=== PATIENT | female | born 1945 | race Caucasian/White ===

== ENCOUNTER 2020-12-01 11:50 | Emergency (ER) | payer MEDICARE, OTHER, SELFPAY ==
[2020-12-01 11:56] VITALS: BP 156/84; PULSE 58; RESP 16; TEMP 36.5; O2SAT 97; BMI 27.4
[2020-12-01 12:16] LABS: Basophils % 0.7 %; Eosinophils # 0.1 10^3/uL (0.0-0.8); Eosinophils % 2.3 %; Hematocrit 39.3 % (37.0-47.0); Hemoglobin 13.1 g/dL (11.5-15.3); Lymphocytes # 2.4 10^3/uL (0.8-4.8); Lymphocytes % 39.4 %; Mean Corpuscular HGB Conc 33.3 g/dL (30.0-36.0); Mean Corpuscular Hemoglobin 29.4 pg (28.0-34.0); Mean Corpuscular Volume 88.1 fL (81-99); Mean Platelet Volume 11.1 fL (7.4-10.4); Monocytes # 0.4 10^3/uL (0.2-0.9); Monocytes % 6.5 %; Neutrophils # 3.12 10^3/uL (1.8-7.7); Neutrophils % 50.9 %; Nucleated Red Blood Cells % 0 %; Platelet Count 149 10^3/cmm (130-400); Red Blood Count 4.46 10^6/uL (4.1-5.3); Red Cell Distribution Width 13.2 % (12.1-15.1); White Blood Count 6.1 10^3/uL (4.0-10.0)
[2020-12-01 12:21] VITALS: BP 123/93; PULSE 69; RESP 17; O2SAT 97
--- NOTE | 2020-12-01 12:29 | USR_ITS ---
PROCEDURE INFORMATION: Exam: US Abdomen, Limited; Right Upper Quadrant Exam date and time: 12/01/2020 12:29 PM Age: 75 years old Clinical indication: Abdominal pain; Epigastric; Additional info: Abd pain TECHNIQUE: Imaging protocol: US abdomen. Real time ultrasound with image documentation. Limited exam focused on the right upper quadrant. COMPARISON: No relevant prior studies available. FINDINGS: Liver: Normal. No masses. Gallbladder: There is a positive sonographic Cisneros's sign. Gallbladder wall is somewhat ill-defined in regions. Blower Installer measures gallbladder wall thickness as 1.5 mm. I obtain measurements of 3 mm in regions which is mildly thickened. The gallbladder is distended. Common bile duct: Common bile duct measures 2 mm. Pancreas: Pancreas is not well seen secondary to overlying bowel gas. Right kidney: There is right renal cortical thinning. US/US gall bladder [id number] IMPRESSION: Gallbladder is distended and the gallbladder is somewhat ill-defined with possible mild thickening in regions. In combination with a positive sonographic Cisneros sign, findings raise concern for acute cholecystitis.
--- NOTE | 2020-12-01 12:29 | CTR_ITS ---
PROCEDURE INFORMATION: Exam: CT Abdomen And Pelvis With Contrast Exam date and time: 12/01/2020 12:29 PM Age: 75 years old Clinical indication: Abdominal pain; Localized; Upper; Prior surgery; Surgery type: Hysto; Additional info: Abd pain TECHNIQUE: Imaging protocol: Computed tomography of the abdomen and pelvis with contrast. Radiation optimization: All CT scans at this facility use at least one of these dose optimization techniques: automated exposure control; mA and/or kV adjustment per patient size (includes targeted exams where dose is matched to clinical indication); or iterative reconstruction. Contrast material: OMNI 300; Contrast volume: 95 ml; Contrast route: INTRAVENOUS (IV); COMPARISON: US gall bladder [id number] 12/01/2020 12:53 PM RADIATION DOSE METRICS: Total DLP (mGy-cm): 1236.88 FINDINGS: Liver: Normal. No mass. Gallbladder and bile ducts: The gallbladder is distended. Gallbladder wall is somewhat ill-defined and thickened in regions measuring 3.2 mm. There are several small stones in the gallbladder. Pancreas: Normal. No ductal dilation. Spleen: Normal. No splenomegaly. Adrenal glands: Normal. No mass. Kidneys and ureters: Normal. No hydronephrosis. Stomach and bowel: Unremarkable. No obstruction. No mucosal thickening. Appendix: No evidence of appendicitis. Intraperitoneal space: Unremarkable. No free air. No significant fluid collection. Vasculature: Calcified plaque is present within multiple vascular structures. Lymph nodes: Unremarkable. No enlarged lymph nodes. Urinary bladder: Unremarkable as visualized. Reproductive: Unremarkable as visualized. Bones/joints: Unremarkable. No acute fracture. Soft tissues: Tiny fat containing umbilical hernia. CT/CT abdomen pelvis w con* [id number] IMPRESSION: Gallbladder is distended and contains stones. Gallbladder wall is somewhat ill-defined and mildly thickened in regions raising concern for acute cholecystitis. Radiation Dose CTDIVOL = (mGy): DLP = 1236.88 (mGy-cm)
--- NOTE | 2020-12-01 12:31 | ED_ITS ---
HPI - Abdominal Pain General: Chief Complaint: Abdominal Pain Stated Complaint: ABD PAIN Time Seen by Provider: 12/01/20 11:53 History of Present Illness: HPI narrative: 75-year-old female presents emergency room with complaint of epigastric right upper quadrant chest pain. It began at about 1030 this morning she had eaten biscuits and gravy and guajardo this morning she has not had any vomiting or diarrhea. She has had similar episodes in the past although not as intense. A year ago that recommended she get an ultrasound of her gallbladder but it was put off due to Covid and she never followed through with getting it again. Denies any hematuria denies any hematochezia melena hematemesis coffee-ground emesis MD elicited complaint: abdominal pain Onset (ago): hour(s) Pain Consistency: constant Location: Epigastric and RUQ Severity: moderate Quality: cramping Radiation: none Migration to: RUQ Exacerbating factors: eating Relieving factors: nothing Associated Symptoms: Reports anorexia, bloating, GI cramping, nausea and poor appetite; Denies belching, change in bowel habits, change in stool character, chills, coffee ground emesis, constipation, diarrhea, dyspepsia, dysuria, excessive flatus, fever(s), heartburn, hematochezia, hematuria, hematemesis, fecal incontinence, loose stools, melena, syncope and vomiting Review of Systems Const: Denies: fever(s) or chills ENMT: Denies: throat pain, ear or mastoid pain, nasal discharge or nasal congestion Card: Denies: syncope Resp: Denies: dyspnea, productive cough or non-productive cough GI: Reports: nausea, bloating and GI cramping; Denies: vomiting, hematemesis, coffee ground emesis, heartburn, diarrhea, constipation, belching, excessive flatus, fecal incontinence, change in bowel habits, change in stool character, hematochezia or melena : Denies: dysuria or hematuria Skin/Breast: Denies: rash or pruritus PFS ED PFSH: Medical History (Updated 12/14/20 @ 16:13 by Earl Marrero MD) Hypothyroidism Surgical History (Updated 12/14/20 @ 10:59 by Earl Marrero MD) History of colonoscopy History of hysterectomy Family History (Updated 12/14/20 @ 10:31 by Eugenia Madera RN) Denies family history of Anesthesia complication Bleeding disorder Social History Smoking and tobacco status: never smoked Physical Exam Const: COMMON NORMALS: no acute distress GENERAL APPEARANCE: cooperative and comfortable ORIENTATION/CONSCIOUSNESS: Yes awake, Yes oriented to person, Yes oriented to place and Yes oriented to time HENMT: COMMON NORMALS: normocephalic, atraumatic, hearing grossly normal bilaterally and external ears normal HEAD & SCALP: normocephalic and atraumatic EXTERNAL EAR: Yes external ears normal Neck/C-Spine: COMMON NORMALS: no JVD Resp: COMMON NORMALS: normal respiratory effort, No retractions, No use of accessory muscles and clear to auscultation bilaterally AUSCULTATION: clear to auscultation bilaterally Cardio: COMMON NORMALS: no JVD, regular rate, regular rhythm and No murmurs present (Cardio) RATE: regular rate RHYTHM: regular rhythm GI: COMMON NORMALS: Soft to palpation and No hepatosplenomegaly present AUSCULTATION: Yes normoactive bowel sounds PALPATION: Yes Soft to palpation, No Tenderness to palpation present (GI), No Guarding due to palpation present (GI) and Yes No hepatosplenomegaly present Extremity: COMMON NORMALS: normal to inspection, capillary refill normal, no clubbing, cyanosis or edema, no calf tenderness and no pedal edema Neuro: SENSORIUM/ORIENTATION: Yes oriented to person, Yes oriented to place and Yes oriented to time Skin: COMMON NORMALS: no rashes or lesions noted GENERAL SKIN EXAM: no rashes or lesions noted Course Vital Signs: Vital signs: Vital Signs Temperature 97.7 F 12/01/20 11:56 Pulse Rate 73 12/01/20 15:55 Respiratory Rate 15 12/01/20 15:55 Blood Pressure 128/66 12/01/20 15:55 Pulse Oximetry 97 12/01/20 15:55 MDM - Abdominal Pain MDM Narrative: Medical decision making narrative: Patient is feeling better we will discharge her home and set her up to see surgery next week for further evaluation of gallbladder discussed bland diet pain medications and antiemetics return if worsens Lab Data: Labs: Lab Results 12/01/20 12/01/20 12/01/20 Range/Units 11:34 11:34 13:16 WBC 6.1 (4.0-10.0) 10^3/ uL RBC 4.46 (4.1-5.3) 10^6/u L Hgb 13.1 (11.5-15.3) g/dL Hct 39.3 (37.0-47.0) % MCV 88.1 (81-99) fL MCH 29.4 (28.0-34.0) pg MCHC 33.3 (30.0-36.0) g/dL RDW 13.2 (12.1-15.1) % Plt Count 149 (130-400) 10^3/c mm MPV 11.1 H (7.4-10.4) fL Neut % (Auto) 50.9 % Lymph % (Auto) 39.4 % [place] % (Auto) 6.5 % Eos % (Auto) 2.3 % Baso % (Auto) 0.7 % Neut # (Auto) 3.12 (1.8-7.7) 10^3/u L Lymph # (Auto) 2.4 (0.8-4.8) 10^3/u L [place] # (Auto) 0.4 (0.2-0.9) 10^3/u L Eos # (Auto) 0.1 (0.0-0.8) 10^3/u L Baso # (Auto) 0.0 (0.0-0.1) 10^3/u L Nucleated RBC % (a uto) 0 % Nucleated RBCs # 0.0 /100WBC Sodium 142 (136-145) mmol/L Potassium 3.9 (3.5-5.1) mmol/L Chloride 104 (98-107) mmol/L Carbon Dioxide 26 (22-29) mmol/L Anion Gap 15.9 (5-19) BUN 21 (8-23) mg/dL Creatinine 0.8 (0.5-0.9) mg/dL GFR Calculation Not Reportable Glucose 146 H (65-115) mg/dL Calculated Osmolal ity 300 H (285-295) mOsm/k g Calcium 9.2 (8.5-10.5) mg/dL Total Bilirubin 0.8 (0.15-1.2) mg/dL AST 26 (0-32) U/L ALT 20 (0-33) U/L Alkaline Phosphata se 96 (35-105) IU/L Total Protein 6.5 L (6.6-8.7) g/dL Albumin 3.9 (3.5-5.2) g/dL Globulin 2.6 (1.3-4.6) g/dL Urine Color Straw (Yellow) Urine Appearance Hazy A (CLEAR) Urine pH 7 (5-7) Ur Specific Gravit y 1.010 (1.005-1.030) Urine Protein Neg (Negative) Urine Glucose (UA) Norm (Normal) Urine Ketones Negative (Negative) Urine Blood Neg (Negative) Urine Nitrate Negative (Negative) Urine Bilirubin Neg (Negative) Urine Urobilinogen Norm (Negative) mg/dL Ur Leukocyte Clari ase Negative (Negative) Urine RBC None (0-2) /hpf Urine WBC Rare (0-5) /hpf Ur Squamous Epith Cells None (0-5) /hpf Amorphous Sediment 2+ /hpf Urine Bacteria Trace (NONE) /hpf Discharge Plan Discharge Patient Disposition: Home Clinical Impression: Cholelithiases Condition: Stable Prescriptions: New hydrocodone-acetaminophen 5-325 mg tablet 1 tab PO Q6H PRN (Reason: pain) Qty: 20 RF: 0 Zofran 4 mg tablet 4 mg PO Q6H PRN (Reason: nausea and vomiting) Qty: 15 RF: 0 No Action levothyroxine 50 mcg capsule 50 mcg PO DAILY RF: 0 Discharge Orders: Discharge ED (Routine); Ordered 12/01/20 Ordered By: Elliot Huerta Referrals: Jhoan Soriano DO [Primary Care Provider] - Discharge Diet: Clear Liquid Discharge Activity: Limit activity as instructed Patient Instructions: Opioid Safety Activity Restrictions/Additional Instructions: Case management will call to arrange for an appointment with a surgeon for you to have a cholecystectomy Coding Level of Care Code ED Floor Manager for Chg Fwd Exam Comprehensive
[2020-12-01 12:38] LABS: Alanine Aminotransferase 20 U/L (0-33); Albumin Level 3.9 g/dL (3.5-5.2); Alkaline Phosphatase 96 IU/L (35-105); Anion Gap 15.9 (5-19); Aspartate Amino Transferase 26 U/L (0-32); Blood Urea Nitrogen 21 mg/dL (8-23); Calcium 9.2 mg/dL (8.5-10.5); Carbon Dioxide 26 mmol/L (22-29); Chloride 104 mmol/L (98-107); Globulin 2.6 g/dL (1.3-4.6); Glucose 146 mg/dL (65-115); Osmolality Calculated 300 mOsm/kg (285-295); Potassium 3.9 mmol/L (3.5-5.1); Sodium 142 mmol/L (136-145); Total Bilirubin 0.8 mg/dL (0.15-1.2); Total Protein 6.5 g/dL (6.6-8.7)
[2020-12-01] MEDS: iohexol 300 mg/mL 100 mL Btl IV (13:44)
[2020-12-01 13:49] LABS: Add Urine Microscopic? YES; Bilirubin Urine Neg (Negative); Blood Urine Neg (Negative); Glucose Urine UA Norm (Normal); Ketones Urine Negative (Negative); Leukocyte Esterase Urine Negative (Negative); Nitrate Urine Negative (Negative); Protein Urine Neg (Negative); Urine Appearance Hazy (CLEAR); Urine Color Straw (Yellow); Urobilinogen Urine Norm (Negative); pH Urine 7 (5-7)
[2020-12-01 13:50] LABS: Bacteria Urine TRACE /hpf; WBC Urine RARE /hpf (0-5)
[2020-12-01 13:51] LABS: Add Urine Culture? No; Amorphous Sediment Urine 2+ /hpf
[2020-12-01 14:00] VITALS: BP 128/66; PULSE 73; RESP 15; O2SAT 97
[2020-12-01] MEDS: morphine 4 mg/mL SDV 1 mL IVP (14:44)
[2020-12-01] MEDS: sodium chloride 0.9% 1,000 ML 999 ML IV (14:44)
[2020-12-01] MEDS: ondansetron 2 mg/ML SDV 2 mL 4 MG IVP (14:44)
[2020-12-01 15:55] VITALS: BP 128/66; PULSE 73; RESP 15; O2SAT 97
--- NOTE | 2020-12-03 09:29 | PC.SOCIAL ---
Sent Email to [facility] regarding the referral by Dr Huerta for consult for Cholithiasis. They will call patient with appointment.
--- NOTE | 2020-12-14 15:10 | DCPLANNER ---
Patient had a follow up appointment scheduled for 12.14.[address] Marrero at [facility] - patient did attend appointment.
== END 2020-12-01 15:55 | disposition home or self-care (01) ==
PROVIDERS: Emergency Provider Family Medicine; PCP Family Medicine
DX: K80.20 Calculus of gallbladder without cholecystitis without obstruction (principal)
CPT/HCPCS: 74177; 76705; 80053; 81001; 85025; 96361; 96374; 96375; 99284; J2270; J2405; J7030; Q9967

== ENCOUNTER → 2020-12-14 11:08 | Outpatient (BNVA) | payer MEDICARE, OTHER, SELFPAY | PROVIDERS: PCP Family Medicine; Visit Provider Surgery | DX: Z11.52 Encounter for screening for COVID-19 (principal); K80.20 Calculus of gallbladder without cholecystitis without obstruction | CPT/HCPCS: 87635 ==

== ENCOUNTER 2020-12-20 06:01 | Day surgery (SDC) | payer MEDICARE, OTHER, SELFPAY ==
[2020-12-19 08:23] VITALS: BMI 27.4
[2020-12-20] VITALS (8 sets, daily range): BP systolic 130–147; BP diastolic 68–73; PULSE 55–68; RESP 15–20; TEMP 36.1–36.5; O2SAT 95–100
[2020-12-20] MEDS: sodium chloride 0.9% 1,000 ML 30 ML IV (06:34)
--- NOTE | 2020-12-20 06:51 | W.PM.OPSUD ---
Surgery/Procedure H&P Update DATE OF PROCEDURE: December 20, 2020 DATE H&P PERFORMED: 12/14/20 H&P UPDATE INFORMATION: I have reviewed H&P completed within last 30 days, I have examined patient prior to procedure and No changes to prior documentation PREOP DIAGNOSIS: Cholelithiasis PLANNED PROCEDURE: Operation Date: 12/20/20 07:00 Proposed Procedures p Laparoscopic Possible Cholecystectomy 81768 K80.20(Not Applicable) - Earl Marrero MD
--- NOTE | 2020-12-20 07:02 | ANES.PREANE2 ---
Pre-Anesthetic Assessment Pre-Anesthetic Assessment: Height/Weight: Height 1.63 m Weight 72.575 kg Temp Pulse Resp BP Pulse Ox 97.7 F 64 18 147/70 95 12/20/20 06:14 12/20/20 06:14 12/20/20 06:14 12/20/20 06:14 12/20/20 06:14 Preop Diagnosis: Cholelithiasis Proposed Procedure: Operation Date: 12/20/20 07:00 Proposed Procedures p Laparoscopic Possible Cholecystectomy 29144 K80.20(Not Applicable) - Earl Marrero MD Was Beta Cherie taken within 24 hours: N/A Was Clonidine taken within 24 hours: N/A Last intake: Intake Last Liquid Date 12/19/20 Last Liquid Time 20:00 Last Solid Date 12/19/20 Last Solid Time 20:00 Social: Social History: No alcohol and No tobacco Exam: Pre-Anes Outpt Exam: alert, oriented x 3, clear to auscultation bilaterally and regular rate & rhythm Airway: Submandibular: WNL Cervical ROM: WNL MP: 2 Dentition: Full Metabolic: Metabolic: Thyroid Anesthetic Plan: ASA status: 2 Anesthesia: General Risk of > 500 ml blood loss (7ml/kg in children): No Meds/Allergies Current Medications: Current Medications Generic Name Dose Route Start Last Admin Trade Name Freq PRN Reason Stop Dose Admin Sodium Chloride 1,000 mls @ 30 ml s/hr 12/20/20 06:00 12/20/20 06:34 Sodium Chloride 0.9% IV 12/21/20 05:59 30 mls/hr .Q24H RADHA Administration PFSH Anesthesia PFSH: Medical History (Updated 12/14/20 @ 16:13 by Earl Marrero MD) Hypothyroidism Surgical History (Updated 12/20/20 @ 07:00 by Earl Marrero MD) History of colonoscopy History of hysterectomy Status post laparoscopic cholecystectomy (12/20/20) Family History (Updated 12/14/20 @ 10:31 by Eugenia Madera RN) Denies family history of Anesthesia complication Bleeding disorder Social History Smoking and tobacco status: never smoked Data Anesthesia Cardiac Studies: No Data to Display
--- NOTE | 2020-12-20 07:41 | PM.OP ---
Operative Report Date of procedure: December 20, 2020 Pre-op Diagnosis: Cholelithiasis Post-op diagnosis: same Procedure Done: Laparoscopic cholecystectomy Specimens removed/disposition: Gallbladder Surgeon: Earl Marrero Anesthesia: General Condition: stable Disposition: PACU Procedure: The patient was taken to the operating room and was intubated under general anesthesia. After the antibiotic had been administered, the abdomen was prepped and draped in a sterile manner. Using a #15 blade, a 1 centimeter infraumbilical curvilinear incision was made and using an open Lisa technique the peritoneal cavity was entered. A 10 millimeter port was placed and 15 millimeters of pneumoperitoneum was created. A 10 millimeter, 30 degrees scope was then introduced. Three 5 millimeter ports were placed in the epigastric, midclavicular and the anterior axillary line two fingerbreadths below the costal margin on the right side under the direct visualization. Ratcheted forceps were introduced into the lateral most port and was used to retract the fundus of the gallbladder cephalad and using forceps the infundibulum of the gallbladder was retracted laterally. Using L-hook cautery the peritoneum overlying the Calot's triangle was opened medially and laterally until the cystic duct and the cystic artery were skeletonized. Dissection was carried along the body of the gallbladder and after ensuring critical view of safety, 4 clips applied on the cystic duct and 3 clips applied on the cystic artery and cut leaving, 3 clips on the remaining portion of the duct and 2 clips on the remaining portion of the artery. The rest of the gallbladder was dissected off the liver using L-hook cautery. There was no bleeding or bile leaking noted from the gallbladder fossa and the clips appeared to be in place. An EndoCatch bag was introduced to remove the gallbladder. All the ports were removed under direct visualization and there was no bleeding noted from the port sites. The fascia of the umbilicus was closed using [id number] 0 Vicryl sutures and the subcutaneous tissue was approximated using 3-0 Vicryl sutures. The skin at all four ports were closed using 4-0 Monocryl and Dermabond. A total of 10 millimeters of 0.5% Marcaine was infiltrated around the port sites. The patient was stable throughout the procedure.
[2020-12-20] MEDS: HYDROcodone-acetaminophen 5-325 mg Tablet 1 TAB PO (08:53)
--- NOTE | 2020-12-20 16:37 | ANE.PACU2 ---
Inpatient post-anesthesia follow up: Airway intact: Yes Vital signs: Temperature 97.7 F Pulse Rate 58 Respiratory Rate 18 Blood Pressure 130/71 Pulse Oximetry 99 Oxygen Delivery Me thod Room Air Oxygen Flow Rate 8 Fraction of Inspir ed Oxygen Hydration adequate: Yes Nausea and vomiting: No Pain level: 2 Mental status: Baseline
== END 2020-12-20 09:05 | disposition home or self-care (01) ==
PROVIDERS: PCP Family Medicine; Visit Provider Surgery
PROC: 0FT44ZZ Resection of Gallbladder, Percutaneous Endoscopic Approach (ICD-10-PCS; CPT 47562; principal; 2020-12-20 07:00)
DX: K81.1 Chronic cholecystitis (principal); E03.9 Hypothyroidism, unspecified
CPT/HCPCS: 47562; 88304; 96365; J0690; J2405; J2704; J2710; J3010; J3490; J7030

== ENCOUNTER → 2022-06-04 13:25 | Outpatient (BNVA) | payer MEDICARE, OTHER, SELFPAY | PROVIDERS: PCP Family Medicine; Visit Provider Orthopaedic Surgery | DX: M77.8 Other enthesopathies, not elsewhere classified (principal); M25.561 Pain in right knee | CPT/HCPCS: 73560; 73565; 99203 ==

== ENCOUNTER → 2022-09-24 14:32 | Outpatient (BNVA) | payer MEDICARE, OTHER, SELFPAY | PROVIDERS: PCP Family Medicine; Visit Provider Orthopaedic Surgery | DX: M23.303 Other meniscus derangements, unspecified medial meniscus, right knee (principal) | CPT/HCPCS: 99213 ==

== ENCOUNTER → 2023-02-23 12:08 | Outpatient (BNVA) | payer MEDICARE, OTHER, SELFPAY | PROVIDERS: PCP Family Medicine; Visit Provider Family Medicine | DX: E03.9 Hypothyroidism, unspecified (principal); M23.303 Other meniscus derangements, unspecified medial meniscus, right knee; Z13.6 Encounter for screening for cardiovascular disorders; Z00.00 Encounter for general adult medical examination without abnormal findings | CPT/HCPCS: 80053; 80061; 84443 ==

== ENCOUNTER → 2023-12-24 08:57 | Outpatient (BNVA) | payer MEDICARE, OTHER, SELFPAY | PROVIDERS: PCP Family Medicine; Visit Provider Podiatrist Foot & Ankle Surgery | DX: L60.0 Ingrowing nail (principal) | CPT/HCPCS: 11750; 99203 ==

== ENCOUNTER → 2024-02-02 10:09 | Outpatient (BNVA) | payer MEDICARE, OTHER, SELFPAY | PROVIDERS: PCP Family Medicine; Visit Provider Family Medicine | DX: Z00.00 Encounter for general adult medical examination without abnormal findings (principal); E03.9 Hypothyroidism, unspecified; U09.9 Post COVID-19 condition, unspecified; J98.4 Other disorders of lung; M47.894 Other spondylosis, thoracic region | CPT/HCPCS: 71046; 80053; 80061; 84443; 85025 ==

== ENCOUNTER → 2025-03-10 08:59 | Outpatient (BNVA) | payer MEDICARE, SELFPAY | PROVIDERS: PCP Family Medicine; Visit Provider Family Medicine | DX: E03.9 Hypothyroidism, unspecified (principal); Z76.89 Persons encountering health services in other specified circumstances; Z48.02 Encounter for removal of sutures | CPT/HCPCS: 84439; 84443 ==